=== PATIENT | female | born 1975 | race Hispanic/Latino ===

== ENCOUNTER → 2018-03-30 | Outpatient (CLI) | payer BC | END | disposition home or self-care (01) | LOC: RAH 10:52 | PROVIDERS: ATTEND Internal Medicine | DX: R22.1 Localized swelling, mass and lump, neck (principal); Z85.820 Personal history of malignant melanoma of skin | CPT/HCPCS: 76536 ==

== ENCOUNTER → 2018-04-03 | Outpatient (CLI) | payer BC ==
[2018-04-03 08:29] LABS: CREATININE 0.9 mg/dL (0.5-1.5)
== END | disposition home or self-care (01) ==
LOC: LAB 06:53
PROVIDERS: ATTEND Internal Medicine
DX: R22.1 Localized swelling, mass and lump, neck (principal); D17.9 Benign lipomatous neoplasm, unspecified; Z85.20 Personal history of malignant neoplasm of unspecified respiratory organ
CPT/HCPCS: 36415; 82565; 84520

== ENCOUNTER → 2018-04-08 | Outpatient (CLI) | payer BC ==
[~2018-04-08] MED LIST: IOHEXOL-350 50ML VIAL IV ONE
== END | disposition home or self-care (01) ==
LOC: RAH 09:16
PROVIDERS: ATTEND Internal Medicine
DX: R22.1 Localized swelling, mass and lump, neck (principal); Z85.820 Personal history of malignant melanoma of skin
CPT/HCPCS: 70492; Q9967

== ENCOUNTER → 2018-11-11 | Outpatient (CLI) | payer BC | END | disposition home or self-care (01) | LOC: RAH 08:25 | PROVIDERS: ATTEND Internal Medicine | DX: R16.0 Hepatomegaly, not elsewhere classified (principal); R19.00 Intra-abdominal and pelvic swelling, mass and lump, unspecified site | CPT/HCPCS: 74178; Q9967 ×2 ==

== ENCOUNTER → 2018-11-24 | Outpatient (CLI) | payer BC ==
[2018-11-24 16:34] LABS: BASOPHILS % (AUTO) 1.5 % (0.0-5.0); EOSINOPHILS % (AUTO) 3.6 % (0.0-8.0); HEMATOCRIT 34.5 % (36-48); LYMPHOCYTES % (AUTO) 36.5 % (21.0-51.0); MEAN CORPUSCULAR HEMOGLOBIN 21.7 pg (27.0-33.0); MEAN CORPUSCULAR HGB CONC 31.7 g/dL (32.0-36.0); MEAN CORPUSCULAR VOLUME 68.4 fL (79-99); MONOCYTES % (AUTO) 7.6 % (3.0-13.0); NEUTROPHILS % (AUTO) 50.8 % (40.0-77.0); NUCLEATED RED BLOOD CELLS 0.1 % (0.0-0.19); PLATELET COUNT (AUTO) 217 K/uL (130-400); RED BLOOD CELL COUNT(AUTO) 5.04 MIL/uL (4.00-5.50); RED CELL DISTRIBUTION WIDTH 18.9 % (11.0-15.5); WHITE BLOOD COUNT (AUTO) 5.9 K/uL (4.8-10.8)
[2018-11-24 16:48] LABS: INR 0.88 (0.85-1.15); PARTIAL THROMBOPLASTIN TIME 24.2 SEC (26.3-35.5); PROTHROMBIN TIME 9.3 SEC (9.6-11.6)
[2018-11-24 17:00] LABS: ALBUMIN 3.9 g/dL (3.5-5.0); BILIRUBIN,TOTAL 0.2 mg/dL (0.2-1.0); CREATININE 0.8 mg/dL (0.5-1.5); THYROID STIMULATING HORMONE 2.23 uIU/mL (0.36-3.74); TOTAL PROTEIN, SERUM 8.1 g/dL (6.0-8.3)
[2018-11-24 17:03] LABS: HEMOGLOBIN A1C 5.7 % (4.0-6.0)
[2018-11-26 08:11] LABS: HEPATITIS Bs ANTIGEN SCREEN P Negative (Negative)
== END | disposition home or self-care (01) ==
LOC: RAH 15:27
PROVIDERS: ATTEND Nurse Practitioner Family
DX: Z01.818 Encounter for other preprocedural examination (principal); E27.8 Other specified disorders of adrenal gland; D25.9 Leiomyoma of uterus, unspecified
CPT/HCPCS: 36415; 71046; 80053; 82306; 83036; 84443; 85025; 85610; 85730; 87340; 87522; 93005

== ENCOUNTER → 2018-12-02 | Outpatient (CLI) | payer BC ==
[~2018-12-02] MED LIST changes: +GADODIAMIDE 10 MMOL/20 ML VIAL IV ONE; -IOHEXOL-350 50ML VIAL IV ONE
== END | disposition home or self-care (01) ==
LOC: RAH 12:50
PROVIDERS: ATTEND Nurse Practitioner Family
DX: N85.2 Hypertrophy of uterus (principal)
CPT/HCPCS: 72197; 74183; A9579

== ENCOUNTER → 2020-09-07 | Outpatient (CLI) | payer BC | END | disposition home or self-care (01) | LOC: RAH 10:28 | PROVIDERS: ATTEND Internal Medicine | DX: R94.5 Abnormal results of liver function studies (principal); R79.89 Other specified abnormal findings of blood chemistry; K76.0 Fatty (change of) liver, not elsewhere classified; R16.0 Hepatomegaly, not elsewhere classified | CPT/HCPCS: 76705 ==

== ENCOUNTER → 2020-10-10 | Outpatient (CLI) | payer BC | END | disposition home or self-care (01) | LOC: RAH 14:11 | PROVIDERS: ATTEND Internal Medicine | DX: E21.3 Hyperparathyroidism, unspecified (principal); Z85.820 Personal history of malignant melanoma of skin | CPT/HCPCS: 78070; A9500 ==

== ENCOUNTER → 2024-07-26 | Outpatient (CLI) | payer BC ==
--- NOTE | 2024-07-26 21:26 | HMCSR ---
APPROVED REPORT EXAM: Two-dimensional and M-mode echocardiogram with Doppler and color Doppler. INDICATION ICD: I36.1, I10 2D Dimensions RVDd3.9 cmLVEF(%)57.9 (>50%)LVED Vol(simp.)117.0 mL IVSd0.9 (0.7-1.1cm)FS(%)31 %LVES Vol(simp.)53.0 mL LVDd4.8 (3.8-5.6cm)LA (2D)4.0 (1.6-4.0cm)LVEF(%, simp.)55 % PWd1.2 (0.7-1.1cm)Ao Root(2D)3.3 (2.0-3.7cm)LA ESV INDEX (BP)43.88 mL/m2 LVDs3.3 (2.5-4.0cm)LVOT diam2.0 (1.8-2.4cm) IVC diam1.9 cm M-Mode Dimensions EPSS0.7 cm LA (MM)3.7 (1.6-4.0cm) Ao Root(MM)3.3 (2.0-3.7cm) Aortic Valve AoV Vmax1.2 m/Ritika Peak GR6.2 mmHgLVOT Vmax1.1 m/s AoV VTI0.3 mAo Mean GR3.4 mmHgLVOT VTI0.23 m TAYE (VMAX)2.73 cm2AVA (VTI) 2.7 cm2 Mitral Valve MV E Vmax62.2 cm/sDECEL Nvbl303 ms MV A Vmax51.4 cm/sP 1/2 T58 ms E/A ratio1.2MVA (PHT)3.8 cm2 TDI E/E' Medial7.3E/E' Lateral5.2 Medial E' Peak V8.49 cm/sLateral E' Peak V12.02 cm/s Pulmonary Valve PV Vmax1.3 m/sPV VTI0.26 mPV Mean GR2.9 mmHg PV Peak GR6.5 mmHg Tricuspid Valve TR Vmax2.3 m/sRVSP18.4 mmHg TR Peak GR21.9 mmHg Left Ventricle The left ventricle is normal size. No regional wall motion abnormalities noted. There is normal left ventricular wall thickness. LVEF is 55-60%. The left ventricular diastolic function is normal. Right Ventricle The right ventricle is normal size. The right ventricular systolic function is normal. Atria The left atrium is mildly dilated. The right atrium size is normal. Aortic Valve The aortic valve is normal in structure. No aortic regurgitation is present. There is no aortic valvu lar stenosis. Mitral Valve The mitral valve is normal in structure. There is no mitral valve regurgitation noted. There is no mi tral valve stenosis. Tricuspid Valve The tricuspid valve is normal in structure. There is trace tricuspid valve regurgitation noted. Pulmonic Valve The pulmonary valve is normal in structure. There is no pulmonic valvular regurgitation. Great Vessels The aortic root is normal in size. The IVC is normal in size and collapses >50% with inspiration. Pericardium There is no pericardial effusion. Conclusion LVEF is 55-60%. The left atrium is mildly dilated.
== END | disposition home or self-care (01) ==
LOC: RAH 12:59
PROVIDERS: ATTEND Internal Medicine
DX: I36.1 Nonrheumatic tricuspid (valve) insufficiency (principal); I10 Essential (primary) hypertension
CPT/HCPCS: 93306